=== PATIENT | female | born 1960 | race African-American/Black ===

== ENCOUNTER 2017-09-13 12:02 | Emergency (ER) | payer MEDICAID, OTHER ==
[~2017-09-13] VITALS: Ht 162.6 cm; Wt 100.0 kg
[2017-09-13 12:44] LABS: BASOPHILS % 1.2 % (0.0-2.0); EOSINOPHILS % 14.1 % (0.0-5.0); HEMATOCRIT. 41.2 % (36.0-48.0); HEMOGLOBIN. 13.7 g/dL (12.0-16.0); LYMPHOCYTES % 32.2 % (20.0-50.0); MEAN CORPUSCULAR HEMOGLOBIN 28.4 pg (28.0-32.0); MEAN CORPUSCULAR VOLUME 85.5 fL (81.0-99.0); MEAN PLATELET VOLUME 8.1 fl (7.4-10.4); MONOCYTES % 6.3 % (2.0-8.0); NEUTROPHILS % 46.2 % (40.0-76.0); PLATELET 293 x1000/uL (130-400); RED BLOOD CELL COUNT 4.81 mill/uL (4.2-5.4); RED CELL DISTRIBUTION WIDTH 14.6 % (11.6-14.6)
[2017-09-13 12:47] LABS: CHLORIDE 104 mEq/L (98-107)
[2017-09-13 12:49] LABS: PARTIAL THROMBOPLASTIN TIME 27.1 sec (23.4-31.0); PROTHROMBIN TIME 10.5 sec (9.4-11.6)
[2017-09-13 14:03] VITALS: BP 111/78
[2017-09-13] MEDS ORDERED: ALBUTEROL (0.083%) 2.5MG/3ML NEB HHN STA (14:30)
[2017-09-13] MEDS ORDERED: IPRATROPIUM BROMIDE (0.02%) 0.5MG/2.5ML NEB HHN STA (14:30)
[2017-09-13] MEDS ORDERED: PREDNISONE 20MG TABLET PO STA (14:30)
== END 2017-09-13 15:12 | disposition home or self-care (01) ==
LOC: ER 12:49
DX: J40 Bronchitis, not specified as acute or chronic (principal); I10 Essential (primary) hypertension; F17.290 Nicotine dependence, other tobacco product, uncomplicated; Z90.710 Acquired absence of both cervix and uterus
CPT/HCPCS: 36415; 71045; 80053; 83880; 85025; 85610; 85730; 93005; 99285; 99406; J7512; Z7610